=== PATIENT | female | born 1980 | race Caucasian/White ===

== ENCOUNTER → 2017-01-02 | Outpatient (CLI) | payer OTHER ==
[~2017-01-02] MED LIST: PRENTAB26 PO
[2017-01-02 16:29] LABS: HEMATOCRIT 34.4 % (37-47); MEAN CORPUSCULAR HEMOGLOBIN 30.4 pg (25-34); MEAN CORPUSCULAR HGB CONC 33.4 g/dl (32-36); MEAN PLATELET VOLUME 9.7 fL (7.4-10.4); PLATELET COUNT 271 K/uL (130-400); RED BLOOD COUNT 3.78 M/uL (4.2-5.4); WHITE BLOOD COUNT 8.05 K/uL (4.8-10.8)
== END | disposition home or self-care (01) ==
LOC: C.LAB1850 15:44
PROVIDERS: ATTEND Obstetrics & Gynecology
DX: N93.9 Abnormal uterine and vaginal bleeding, unspecified (principal)

== ENCOUNTER → 2017-01-24 | Outpatient (CLI) | payer OTHER | END | disposition home or self-care (01) | LOC: C.PATHSPEC 17:48 | PROVIDERS: ATTEND Obstetrics & Gynecology | DX: N93.9 Abnormal uterine and vaginal bleeding, unspecified (principal) ==

== ENCOUNTER → 2017-04-03 | Outpatient (CLI) | payer OTHER ==
[~2017-04-03] MED LIST changes: +CALC500C3 PO; +OXYC-57 PO
[2017-04-03 11:10] LABS: URINE APPEARANCE CLEAR (CLEAR); URINE BILIRUBIN NEG (NEG); URINE COLOR YELLOW; URINE NITRITE NEG (NEG); URINE PH 7.5 (4.5-7.5); URINE SPECIFIC GRAVITY 1.008 (1.000-1.030); UROBILINOGEN NEG (NEG)
[2017-04-03 11:11] LABS: MANUAL MICROSCOPIC REQUIRED? NO; REVIEW REQ? NO
== END | disposition home or self-care (01) ==
LOC: C.LABSPEC 10:44
PROVIDERS: ATTEND Obstetrics & Gynecology
DX: O34.219 Maternal care for unspecified type scar from previous cesarean delivery (principal); Z3A.00 Weeks of gestation of pregnancy not specified

== ENCOUNTER → 2017-04-10 | Outpatient (CLI) | payer OTHER ==
[2017-04-10 13:23] LABS: BASO % 0.1 %; BASO ABS # 0.01 K/uL (0-0.2); COMPLETE YES; HEMATOCRIT 35.7 % (37-47); IG% 0.2 %; LYMPH % 15.1 %; LYMPH ABS # 1.51 K/uL (1.2-3.4); MEAN CELL VOLUME 89.9 fL (80-100); MEAN CORPUSCULAR HGB CONC 34.5 g/dl (32-36); MEAN PLATELET VOLUME 9.2 fL (7.4-10.4); MONO % 5.3 %; NEUT % 77.3 %; PLATELET COUNT 210 K/uL (130-400); RED BLOOD COUNT 3.97 M/uL (4.2-5.4); WHITE BLOOD COUNT 9.98 K/uL (4.8-10.8)
== END | disposition home or self-care (01) ==
LOC: C.LAB1850 12:14
PROVIDERS: ATTEND Obstetrics & Gynecology
DX: Z33.1 Pregnant state, incidental (principal)

== ENCOUNTER → 2017-04-10 | Outpatient (CLI) | payer OTHER ==
[2017-04-13 00:54] LABS: CHLAMYDIA TRACH RNA*** NOT DETECTED (NOT DETECTED); GC (NEIS GONORRHOEAE)RNA** NOT DETECTED (NOT DETECTED)
== END | disposition home or self-care (01) ==
LOC: C.LABSPEC 14:30
PROVIDERS: ATTEND Obstetrics & Gynecology
DX: Z33.1 Pregnant state, incidental (principal)

== ENCOUNTER → 2017-06-12 | Outpatient (CLI) | payer OTHER ==
[~2017-06-12] MED LIST changes: -CALC500C3 PO; -OXYC-57 PO
[2017-06-12 14:39] LABS: GTGD 50 Grams
== END | disposition home or self-care (01) ==
LOC: C.LAB1850 12:02
PROVIDERS: ATTEND Obstetrics & Gynecology
DX: O09.522 Supervision of elderly multigravida, second trimester (principal); Z3A.00 Weeks of gestation of pregnancy not specified

== ENCOUNTER → 2017-08-08 | Outpatient (CLI) | payer OTHER ==
[2017-08-08 10:14] LABS: HEMATOCRIT 34.8 % (37-47)
[2017-08-08 10:35] LABS: GTGD 50 Grams
[2017-08-08 12:48] LABS: URINE APPEARANCE CLEAR (CLEAR); URINE BILIRUBIN NEG (NEG); URINE COLOR YELLOW; URINE NITRITE NEG (NEG); URINE PH 7.5 (4.5-7.5); URINE SPECIFIC GRAVITY 1.006 (1.000-1.030); UROBILINOGEN NEG (NEG)
[2017-08-08 12:54] LABS: MANUAL MICROSCOPIC REQUIRED? YES; REVIEW REQ? NO
[2017-08-08 14:09] LABS: URINE BACTERIA NEG (NEG); URINE RBC 0-4 /hpf (0-4)
== END | disposition home or self-care (01) ==
LOC: C.LAB1850 09:21
PROVIDERS: ATTEND Obstetrics & Gynecology
DX: O09.522 Supervision of elderly multigravida, second trimester (principal)

== ENCOUNTER → 2017-08-22 | Outpatient (CLI) | payer OTHER | END | disposition home or self-care (01) | LOC: C.LAB1850 08:42 | PROVIDERS: ATTEND Obstetrics & Gynecology | DX: O28.1 Abnormal biochemical finding on antenatal screening of mother (principal) ==

== ENCOUNTER → 2017-10-26 | Outpatient (CLI) | payer OTHER ==
[~2017-10-26] MED LIST changes: +CALC500C3 PO; +OXYC-57 PO
--- NOTE | 2017-10-26 12:44 | HISTORY & PHYSICAL EXAMINATION ---
DATE OF ADMISSION: 10/26/2017 HISTORY OF PRESENT ILLNESS: This is a 37-year-old 4, para 2-0-1-2 at 39 weeks estimated gestational age with an EDC of 10/29/2017, who presented to the office today for planned repeat section tomorrow morning. The patient is doing well. She denies any vaginal bleeding, leaking or pain. She was seen earlier this week and did have for planned nonstress tests for advanced maternal age and it was normal. She denies any concerns regarding movement. Her course has been complicated by prior section x2, advanced maternal age, and group beta strep positivity. The patient also desires sterilization at the time of tomorrow. PAST OBSTETRIC AND GYNECOLOGIC HISTORY: x2 and TAB x1. Normal Pap smears. No STDs. PAST MEDICAL HISTORY: Negative. PAST SURGICAL HISTORY: x2 and wisdom teeth extraction. ALLERGIES: No known drug allergies. MEDICATIONS: vitamins. SOCIAL HISTORY: No tobacco, alcohol or street drug use. FAMILY HISTORY: No congenital anomalies or mental retardation. REVIEW OF SYSTEMS: Per HPI. Otherwise, negative. PHYSICAL EXAMINATION: VITAL SIGNS: Height 5 feet 0 inch, weight 201 pounds, and blood pressure 116/70. Urine dip negative for protein. GENERAL: She is a pleasant female, well developed and well nourished in no acute distress. HEART: Regular rate and rhythm. LUNGS: Clear to auscultation bilaterally. ABDOMEN: Soft, gravid, and nontender. Fetus is cephalic by Jaylon's maneuvers. Positive heart tones. EXTREMITIES: Nontender calves. No evidence of edema. ASSESSMENT: 1. 39 and 4/7 weeks' intrauterine . 2. Prior section x2, desires repeat section. 3. Desires sterilization. 4. Advanced maternal age. PLAN: The patient will be presenting to the hospital tomorrow morning for planned repeat section and tubal ligation. Risks, alternatives and complications of both procedures were reviewed with the patient and she desired to proceed. Specifically, risks include bleeding, infection, injury to maternal and structures, failure with resultant , ectopic , and regret. The patient desires to proceed and consent forms are signed. She will undergo laboratory testing today and preadmission testing. She will present in the morning for planned procedure. Her preop and postop instructions and course were reviewed.
[2017-10-26 13:25] LABS: BASO % 0.1 %; BASO ABS # 0.01 K/uL (0-0.2); EOS % 0.7 %; EOS ABS # 0.08 K/uL (0-0.5); HEMATOCRIT 34.7 % (37-47); HEMOGLOBIN 11.9 g/dL (12.0-16.0); LYMPH % 12.1 %; MEAN CELL VOLUME 96.9 fL (80-100); MEAN CORPUSCULAR HEMOGLOBIN 33.2 pg (25-34); MEAN CORPUSCULAR HGB CONC 34.3 g/dl (32-36); MEAN PLATELET VOLUME 9.8 fL (7.4-10.4); MONO % 7.1 %; MONO ABS # 0.77 K/uL (0.11-0.59); NEUT % 79.1 %; NEUT ABS # 8.52 K/uL (1.4-6.5); PLATELET COUNT 141 K/uL (130-400); RED CELL DISTRIBUTION WIDTH SD 46.4 fL (36.4-46.3); WHITE BLOOD COUNT 10.78 K/uL (4.8-10.8)
== END | disposition home or self-care (01) ==
LOC: C.LAB 04:00
PROVIDERS: ATTEND Obstetrics & Gynecology
DX: Z01.812 Encounter for preprocedural laboratory examination (principal)

== ENCOUNTER 2017-10-27 07:43 | Inpatient (IN) | payer OTHER ==
--- NOTE | 2017-10-26 12:31 | PAT Medication Instructions ---
Service Date Oct 26, 2017. Current Home Medication List Calcium Carbonate (Tums), 1-2 TAB PO prn Multivit/Min/Iron/Fol Ac/Pren ( Vitamin), 1 TAB PO HS Medication Instructions For Your Scheduled Surgery - Hold the following medications the morning of surgery: Calcium Carbonate (Tums), 1-2 TAB PO prn - Take the following medications as scheduled the night before surgery: Multivit/Min/Iron/Fol Ac/Pren ( Vitamin), 1 TAB PO HS *nothing to eat or drink after midnight* If you have any questions please call us at [phone] or [phone] or [phone]
[2017-10-27] VITALS (11 sets, daily range): BP systolic 106–111; BP diastolic 67–73; PULSE 75–83; TEMP 36.5–36.8; O2SAT 96–98; Ht 152.4 cm; Wt 91.4 kg
[~2017-10-27] VITALS: Ht 152.4 cm; Wt 91.4 kg
[~2017-10-27 07:43] MED LIST changes: +CEFAZOLIN IV 2,000 MG in SYRINGE 0 ML IV SCH; +CITRIC ACID/SODIUM CITRATE 15 ML UDC PO SCH; +LACTATED RINGER'S 1000ML 1,000 ML IV SCH; -OXYC-57 PO
[2017-10-27] MEDS ORDERED: MoRPHine SULFATE PF 1 MG/ML 10 ML AMP/VIAL ONE (09:11)
[2017-10-27] MEDS ORDERED: SODIUM CHLORIDE 0.9% 1000ML 1,000 ML IV PRN (09:23)
[2017-10-27] MEDS ORDERED: LACTATED RINGER'S 1000ML 500 ML IV PRN (09:23)
[2017-10-27] MEDS ORDERED: NALOXONE HCL INJ 0.08 MG in SYRINGE 1.8 ML IV PRN (09:23)
[2017-10-27] MEDS ORDERED: NALOXONE HCL INJ 1 MG in SODIUM CHLORIDE 0.9% 1000ML 1,000 ML IV PRN ×4 (09:23)
[2017-10-27] MEDS ORDERED: EpHEDrine SULFATE INJ 50 MG/ML AMP IV PRN ×2 (09:30)
[2017-10-27] MEDS ORDERED: ONDANSETRON INJ 2 MG/ML 2 ML VIAL IV PRN ×2 (09:30)
[2017-10-27] MEDS ORDERED: ATROPINE SULFATE 0.1 MG/ML 5ML SYR IV PRN (09:30)
[2017-10-27] MEDS ORDERED: MEPERIDINE HCL 25 MG/ML CARP IV PRN ×2 (09:30)
[2017-10-27] MEDS ORDERED: PHENYLEPHRINE 100MCG/ML 5ML SYR IV PRN (09:30)
[2017-10-27] MEDS ORDERED: MoRPHine SULFATE PF 1 MG/ML 10 ML AMP/VIAL EPI PRN (09:30)
[2017-10-27] MEDS ORDERED: KETOROLAC TROMETHAMINE 30 MG/ML VIAL IV. PRN (09:30)
[2017-10-27] MEDS ORDERED: PROMETHAZINE HCL INJ 12.5 MG in SODIUM CHLORIDE 0.9% 50ML 50 ML IV PRN ×4 (09:30)
[2017-10-27] MEDS ORDERED: NALOXONE HCL 0.4 MG/1 ML VIAL/CARP IV PRN (09:30)
[2017-10-27] MEDS ORDERED: DiphenhydrAMINE HCL 50 MG/ML VIAL IV PRN (09:30)
[2017-10-27] MEDS ORDERED: NO NARCOTICS OR SEDATIVES SCH (09:30)
[2017-10-27] MEDS ORDERED: NALBUPHINE HCL INJ 10 MG/ML AMP IV PRN (09:30)
--- NOTE | 2017-10-27 10:16 | History & Physical Bridge Note ---
H&P Re-Evaluation Bridge Note: I have examined the patient, reviewed the History & Physical and in the interval since the performance of the History & Physical I have noted the following changes of clinical significance: No changes noted
[2017-10-27] MEDS ORDERED: OXYTOCIN INJ 10 UNITS/ML VIAL ONE (10:50)
[2017-10-27] MEDS ORDERED: METOCLOPRAMIDE HCL INJ 5 MG/ML 2 ML VIAL ONE (10:50)
[2017-10-27] MEDS ORDERED: EpHEDrine SULFATE 50MG/5ML SYR ONE (10:50)
[2017-10-27] MEDS ORDERED: ONDANSETRON INJ 2 MG/ML 2 ML VIAL ONE (10:50)
[2017-10-27] MEDS ORDERED: PHENYLEPHRINE 100MCG/ML 5ML SYR ONE (10:50)
[2017-10-27] MEDS ORDERED: OXYTOCIN INJ 20 UNITS in LACTATED RINGER'S 1000ML 1,000 ML IV SCH (11:15)
[2017-10-27] MEDS ORDERED: HYDROCORTISONE ACETATE 25 MG SUPP PR PRN (11:15)
[2017-10-27] MEDS ORDERED: BENZOCAINE 20% AER SPR 82.5 GM CAN EXT PRN (11:15)
[2017-10-27] MEDS ORDERED: SUPERCREAM 0.870 % 15GM JAR EXT PRN (11:15)
[2017-10-27] MEDS ORDERED: LANOLIN OINT EXT PRN ×2 (11:15)
--- NOTE | 2017-10-27 11:39 | [facility] Operative Report ---
Operative Report Operative Date Oct 27, 2017. Pre-Operative Diagnosis 39 week Intrauterine , previous Section x 2-desires repeat section, desires sterilization, advanced maternal age Post-Operative Diagnosis same with delivery of living male child at 1045 Procedure(s) Performed Repeat Low Transverse Caesarean Section with modified ana rosa bilateral tubal ligation Surgeon Dr. Lorin Ayers Billet Checker Surgeon(s) Dr. Saucedo Estimated Blood Loss 600 Findings Viable male infant Apgars 9 and 10 and weight 8 lbs. 2 oz. normal uterus tubes and ovaries bilaterally Fluids 3000 Specimens a. placenta- hold b. cord blood specimen c. portion right fallopian tube d. portion left fallopian tube Drains Smith Anesthesia spinal with Duramorph Complication(s) None Disposition Recovery Room / PACU Indications 37-year-old 3 para 2001 at 39+ weeks estimated gestational age for planned repeat section with history of prior section 2. The patient also desired bilateral tubal ligation and was aware of all of her control options. Description of Procedure The patient was taken to the operating room and identified. After adequate spinal anesthesia was obtained she was placed in the supine position with a leftward tilt and prepped and draped in usual sterile fashion. A Smith catheter had been placed under sterile conditions. Her anesthesia level was tested and was adequate. A knife was used to create a Pfannenstiel skin incision that was carried down to the underlying layer of fascia. The fascia was nicked in the midline and this opening was extended laterally using Fuentes scissors. Raymond clamps were placed on the superior and inferior aspects the fascial incision tenting upwards and the underlying rectus muscles were dissected off the overlying fascia both sharply and bluntly using Fuentes scissors. The peritoneal cavity had already been entered into. This opening was stretched. The bladder blade was placed. The vesicouterine peritoneum was elevated and entered into sharply using Metzenbaum scissors and extended laterally. The bladder flap was created digitally. The bladder blade was replaced. The knife was used to create a hysterotomy that was then stretched. Amniotic sac was ruptured with return of clear fluid. The operators hand was placed through the hysterotomy and the head was elevated. The bladder blade was removed. With fundal pressure the cephalic was delivered. The nose and mouth were bulb suctioned. With further fundal pressure the body was delivered. The cord was clamped and cut and the infant was handed off to the waiting pediatricians. Cord blood was obtained. The placenta was manually expressed. Uterus was exteriorized and cleared of all clots and debris. The hysterotomy was closed in a running interlocking fashion using 0 Vicryl. Interrupted imbricating sutures of 0 Vicryl were placed for excellent hemostasis. The right fallopian tube was identified to its fimbriated end. A knuckle of tube was elevated using a Gregory clamp. The tube was then doubly ligated using 2-0 plain suture material. The tube was then transected with Metzenbaum scissors and the stumps were cauterized. The left fallopian tube was identified elevated, doubly ligated , transected and cauterized in the similar fashion. The tubal specimens were sent separately. The hysterotomy was reinspected and noted to be hemostatic. The uterus was returned to the abdomen. The tubal ligation operative sites were inspected and noted to be intact and hemostatic and the hysterotomy was reinspected and noted to be hemostatic. The fascia was then closed in a running fashion using 0 Vicryl. The subcutaneous fat was copiously irrigated. The subcutaneous tissue was then reapproximated using 2-0 chromic. The skin was then reapproximated in a subcuticular fashion using 4-0 Vicryl. All sponge lap needle counts were correct 2. The patient was returned to the recovery room in stable condition. I attest to the content of the Intraoperative Record and any orders documented therein. Any exceptions are noted below.
--- NOTE | 2017-10-27 11:46 | Medical Student: [facility] ---
Operative Report Operative Date Oct 27, 2017. Pre-Operative Diagnosis IUP @39-5wks; AMA; repeat section with b/l tubal ligation Post-Operative Diagnosis same as preop Procedure(s) Performed repeat low transverse section; b/l [place] tubal ligation Surgeon Dr. Ayers Food Service Specialist Surgeon(s) Dr. Saucedo Estimated Blood Loss 600cc Findings Scar tissue from previous sections. Normal appearing uterus with thinning of the lower uterine segment. Normal appearing b/l fallopian tubes and b/l ovaries. Delivered viable male infant born from vertex presentation with 9 and 10 Apgars and weight of 4eg4gls. Fluids (cc crystalloids) 3000cc Specimens placenta (hold), cord blood specimen, segment of right fallopian tube, segment of left fallopian tube Drains peña to straight drainage; clear urine at end of case Anesthesia spinal Complication(s) None Disposition Recovery Room / PACU Indications 37yo [id number] (now 3) @ 39-5wks with hx of 2 previous sections who presents for repeat section and b/l tubal ligation.
--- NOTE | 2017-10-27 15:17 | Anesthesiology Progress Note ---
Anesthesia Post Op Note Date & Time Oct 27, 2017 at 15:16 Vital Signs Vital Signs Past 12 Hours Date Time Temp Pulse Resp B/P (MAP) Pulse Ox O2 Delivery O2 Flow Rate FiO2 10/27/17 14:00 18 97 Notes Mental Status: alert / awake / arousable, participated in evaluation Pt Amnestic to Procedure: Yes Nausea / Vomiting: adequately controlled Pain: adequately controlled Airway Patency, RR, SpO2: stable & adequate BP & HR: stable & adequate Hydration State: stable & adequate Anesthetic Complications: no major complications apparent
[2017-10-27] MEDS: SIMETHICONE 80 MG CHEW PO SCH ×2 (17:00→20:11)
[2017-10-27] MEDS: KETOROLAC TROMETHAMINE 30 MG/ML VIAL IV. PRN (18:32)
[2017-10-27] MEDS: DOCUSATE SODIUM 100 MG CAP PO SCH (20:11)
[2017-10-28] VITALS (8 sets, daily range): BP systolic 98–130; BP diastolic 65–75; PULSE 75–80; TEMP 36.3–36.8; O2SAT 94–97
[2017-10-28] MEDS: KETOROLAC TROMETHAMINE 30 MG/ML VIAL IV. PRN (00:32)
[2017-10-28] MEDS ORDERED: OXYCODONE/ACETAMINOPHEN 5-325 TAB PO PRN (03:00)
[2017-10-28] MEDS ORDERED: ONDANSETRON INJ 2 MG/ML 2 ML VIAL IV PRN (03:00)
[2017-10-28] MEDS ORDERED: KETOROLAC TROMETHAMINE 30 MG/ML VIAL IV. PRN (03:00)
[2017-10-28] MEDS ORDERED: PROMETHAZINE HCL INJ 25 MG in SODIUM CHLORIDE 0.9% 50ML 50 ML IV PRN (03:00)
[2017-10-28] MEDS ORDERED: DC INTRASPINAL MORPHINE ONE (03:00)
[2017-10-28] MEDS: IBUPROFEN 600 MG TAB PO PRN ×5 (06:00→22:47)
[2017-10-28] MEDS: OXYCODONE/ACETAMINOPHEN 5-325 TAB PO PRN ×5 (06:01→22:47)
--- NOTE | 2017-10-28 07:05 | Progress Note ---
Subjective Oct 28, 2017. Subjective conversation w/ patient, physical exam, chart review, lab review Ambulation: ambulating normally Voiding: no voiding problems Passing Gas: Yes Diet Tolerance: Regular Diet Lochia: Moderate Feeding Type: Bottle Feeding Pain: controlled Review of Systems Respiratory: No shortness of breath Cardiac: No chest pain Abdomen: No nausea, No vomiting Female : No dysuria Objective Vital Signs Date Time Temp Pulse Resp B/P (MAP) Pulse Ox O2 Delivery O2 Flow Rate FiO2 10/28/17 03:40 36.7 79 16 108/70 (83) 96 Room Air 10/28/17 02:40 16 96 10/28/17 01:30 16 96 10/28/17 00:30 20 97 10/27/17 23:30 36.5 83 20 106/67 (80) 96 Room Air 10/27/17 23:30 20 96 10/27/17 23:30 96 Room Air 10/27/17 22:35 16 96 10/27/17 21:30 16 97 10/27/17 20:25 16 97 10/27/17 20:25 36.8 75 16 111/73 (86) 97 Room Air 10/27/17 19:20 20 98 10/27/17 19:00 18 97 10/27/17 18:00 18 98 10/27/17 17:00 20 98 10/27/17 15:30 18 98 10/27/17 15:30 97 Room Air 10/27/17 15:00 18 97 10/27/17 14:00 18 97 Physical Exam General Appearance: WELL-APPEARING, WD/WN, NO APPARENT DISTRESS Respiratory/Chest: lungs clear, normal breath sounds, no respiratory distress Cardiovascular: regular rate, rhythm, no gallop Abdomen: normal bowel sounds, soft Fundus: Firm, Tender (appropriately tender), Relation to Umbilicus (1 below U) Incision Description: Clean, Dry & Intact Extremities: non-tender, normal inspection Laboratory Results Last 24 Hours Test 10/28/17 06:00 Assessment and Plan Post-Op Day#: 1 Continue Routine Care: 37 yof (now3) C/S 10/27 at 1045 A+/GBS+/RI Hgb pending. Pt doing well clinically. Encourage ambulation, control pain with motrin/tylenol. Monitor lochia. Continue routine post care. WILL MARGARITO FMR PGY 1. Resident Physician Supervision Note: I was present with Dr. Saucedo during the history and exam. I discussed the case with the resident and agree with the findings and plan as documented in the note. Any exceptions or clarifications are listed here: doing well, hgb pending. ff about 2 down and incision c/d/i. routine care. Documented By: Lorin Ayers Resident Tracking Resident Involvement: Resident Care Provided Care Provided: OB Delivery
--- NOTE | 2017-10-28 07:26 | Discharge Instructions ---
Discharge Instructions Date of Service Oct 28, 2017. Admission Reason for Admission: Previous Section Discharge Discharge Diagnosis / Problem: Section, need for sterilization Discharge Goals Goal(s): Routine recovery after Medications Continue Dispensed Medications: supercream, lansinoh Activity Recommendations Activity Limitations: per Instructions/Follow-up section . Instructions / Follow-Up Instructions / Follow-Up ACTIVITY RECOMMENDATIONS: * Gradual return to full activity over the next 2-3 weeks. * No lifting - nothing heavier than baby over the next 2-3 weeks. * Do not engage in vigorous exercise, sexual activity or sports until cleared by your physician. * Do not drive or operate any motorized equipment until cleared by your physician. * You may shower/bathe daily. MEDICATIONS: For discomfort or pain, you may use Acetaminophen (Tylenol), Ibuprofen (Advil), or Naproxen (Aleve) following the package directions. For constipation you may use Colace following the package directions. BREAST CARE: If you are not breast feeding: * Wear a supportive bra 24 hours a day for one to two weeks. * Avoid stimulating your breasts and nipples as much as possible during the first few weeks after delivery. * When taking a shower, have the warm water hit your back, not breasts. * When your breasts feel full, apply ice packs. Usually three to four times a day helps ease the discomfort. * Take a mild pain medication (Tylenol / Motrin) when you are uncomfortable. If breast feeding: * Use breast milk to lubricate nipples. Lansinoh cream may be used for sore nipples. You do not need to remove cream prior to breast feeding. If using a different brand of cream, check the label for directions regarding removal of cream prior to nursing. * Wear a supportive bra. * If having problems with breasts or breast feeding, call a internet marketing consultant or your health care provider. SPECIAL CARE INSTRUCTIONS: When you are discharged from the hospital, it is important for you to follow the instructions listed below: * During the first week at home, you should be able to care for yourself and your baby. In addition, the usual light household activities are encouraged. * Limit your activities to the way you feel. Do not try to clean the house or move furniture. Be sensible. * If you actively engage in sports and have done so up until the time of your delivery, you may resume these activities as soon as you feel able. This may take up to one month or even longer. Use good judgment. * Continue to take your vitamins for at least six weeks after the of your baby. * Your diet need not be limited unless you were on a special diet before your delivery. Breast-feeding mothers need around 2500 calories per day and at least 64-80 ounces of fluid per day (8 to 10 glasses). * You should eat foods from the four major food groups. Crash diets or fad diets are to be avoided. Eating lean meats, fresh fruits and vegetables, low-fat dairy products, high fiber foods and a regular exercise program, will help you get back to your pre- weight without putting your health at risk. * Constipation is sometimes a problem after delivery. Take a mild laxative as needed. If breast feeding, Milk of Magnesia is acceptable to use. You may use a suppository or Fleets enema. * A daily shower or tub bath is suggested. Wash incision daily with warm soapy water and pat dry. It doesn't need to be covered unless drainage is present. * A bloody vaginal discharge will usually continue until around four weeks . A small amount of bleeding may continue for as long as six weeks. Vaginal discharge changes from the bright red bleeding after delivery to pink then brownish and finally yellowish-pink before becoming white and disappearing. * Bleeding may increase with activity. Your first period may come in 4-8 weeks. If you are breast feeding, your period may be delayed even longer. * [place] (sex) can begin whenever both you and your partner feel comfortable and do not have any form of genital infection. It is recommended that you wait at least six weeks for internal and external healing to occur. If you have questions, please talk to your health care practitioner. A condom should be used to prevent infection and . * Foreplay, gentle intercourse and lubrication is very important the first several times to prevent pain. A water-based lubricant such as K-Y jelly or Astroglide may be used. * If you have RH negative blood and your baby is RH positive, you will receive RHOGAM by injection prior to discharge. The nurse will give you a card to keep with you that has the date and place that you received RHOGAM after delivery. * During your care, you had a Rubella screen done to check for the presence of rubella antibodies in your blood. If your test was negative, you will receive a Rubella vaccine prior to discharge. This vaccine may cause a fever, soreness at the injection site and flu-like symptoms. If these symptoms persist, notify your health care practitioner. is not advised for one month after a Rubella vaccine. * Verbalizes understanding of car seat law as reviewed with patient nursing. * Car Seat hand-out given and reviewed with patient by nursing. * Shaken baby information reviewed with patient by nursing. Call you doctor if: * Heavy bleeding (saturating several pads an hour) or passing clots the size of your fist. * A fever >101 degrees F (38.3 degrees C) on two occasions four hours apart and /or chills. * Unusual pain in the pelvic or vaginal areas. * Call the doctor for any increased redness, drainage or swelling around the incision and any pain unrelieved by prescribed pain medication. * "Baby Blues" lasting longer than two weeks. If you have any questions or concerns, call your health care practitioner at . FOLLOW UP VISIT: * Please call the office at to schedule a 6 week examination. It is important you keep this appointment. It is important for you to make arrangements for either yearly or twice yearly check-ups thereafter. Current Hospital Diet Patient's current hospital diet: Regular OB Diet Discharge Diet Recommended Diet: Regular OB Diet Procedures Procedures Performed: Repeat Low Transverse Caesarean Section with modified ana rosa bilateral tubal ligation Pending Studies Studies pending at discharge: no Medical Emergencies . Who to Call and When: Medical Emergencies: If at any time you feel your situation is an emergency, please call [phone] immediately. . Non-Emergent Contact Non-Emergency issues call your: Primary Care Provider . . "Provider Documentation" section prepared by Jenelle Saucedo. . VTE Core Measure Inpt VTE Proph given/why not?: SCD's
[2017-10-28] MEDS: PRENATAL VITAMIN TAB PO SCH (07:57)
[2017-10-28] MEDS: SIMETHICONE 80 MG CHEW PO SCH ×4 (07:57→19:17)
[2017-10-28] MEDS: DOCUSATE SODIUM 100 MG CAP PO SCH ×2 (07:57→19:17)
[2017-10-28] MEDS: FERROUS SULFATE 325 MG TAB PO SCH (07:57)
[2017-10-28 08:31] LABS: BASO % 0.1 %; BASO ABS # 0.01 K/uL (0-0.2); COMPLETE YES; HEMATOCRIT 30.4 % (37-47); IG% 0.8 %; LYMPH % 8.9 %; LYMPH ABS # 0.93 K/uL (1.2-3.4); MEAN CELL VOLUME 96.8 fL (80-100); MEAN CORPUSCULAR HEMOGLOBIN 33.1 pg (25-34); MEAN CORPUSCULAR HGB CONC 34.2 g/dl (32-36); MEAN PLATELET VOLUME 9.4 fL (7.4-10.4); MONO % 6.2 %; PLATELET COUNT 125 K/uL (130-400); RED BLOOD COUNT 3.14 M/uL (4.2-5.4)
[2017-10-29] MEDS ORDERED: DC INTRASPINAL MORPHINE ONE (03:00)
[2017-10-29] MEDS: IBUPROFEN 600 MG TAB PO PRN ×2 (03:06→07:11)
[2017-10-29] MEDS: OXYCODONE/ACETAMINOPHEN 5-325 TAB PO PRN ×2 (03:07→07:12)
[2017-10-29 07:20] LABS: HEMATOCRIT 30.8 % (37-47)
[2017-10-29 08:10] VITALS: BP 122/86; PULSE 60; TEMP 37; O2SAT 99
[2017-10-29] MEDS: PRENATAL VITAMIN TAB PO SCH (08:26)
[2017-10-29] MEDS: SIMETHICONE 80 MG CHEW PO SCH (08:26)
[2017-10-29] MEDS: DOCUSATE SODIUM 100 MG CAP PO SCH (08:26)
[2017-10-29] MEDS: FERROUS SULFATE 325 MG TAB PO SCH (08:26)
--- NOTE | 2017-10-29 08:37 | Progress Note ---
Subjective Oct 29, 2017. Subjective conversation w/ patient, physical exam, lab review Ambulation: ambulating normally Voiding: no voiding problems Passing Gas: Yes Diet Tolerance: Regular Diet Lochia: Small Feeding Type: Bottle Feeding Pain: minimal, controlled Objective Vital Signs Date Time Temp Pulse Resp B/P (MAP) Pulse Ox O2 Delivery O2 Flow Rate FiO2 10/28/17 22:45 96 Room Air 10/28/17 22:45 36.3 75 18 112/72 (85) 96 Room Air 10/28/17 16:00 94 Room Air 10/28/17 16:00 36.5 77 20 98/75 (83) Physical Exam General Appearance: WELL-APPEARING, WD/WN, NO APPARENT DISTRESS Abdomen: non tender, soft Fundus: Firm, Non-Tender, Relation to Umbilicus (at u) Incision Description: Clean, Dry & Intact Extremities: non-tender, normal inspection, + pedal edema (trace) Laboratory Results Last 24 Hours Test 10/29/17 06:47 Hemoglobin 10.1 g/dL Hematocrit 30.8 % Assessment and Plan Post-Op Day#: 2 Continue Routine Care: Doing well. Ready for d/c. Instructions given.
[2017-10-29] MEDS ORDERED: OXYC-57 PO (08:38)
[2017-10-29 11:05] VITALS: BP_DIAS 86; PULSE 60; TEMP 37
--- NOTE | 2017-10-31 13:40 | DISCHARGE SUMMARY ---
ADMISSION DIAGNOSES: 1. A 39+ week intrauterine . 2. Prior section x2, desires repeat section. 3. Desires sterilization. 4. Advanced maternal age. DISCHARGE DIAGNOSES: Same. PROCEDURE: 1. Repeat low transverse section. 2. Modified [place] bilateral tubal ligation. BRIEF HISTORY AND HOSPITAL COURSE: A 37-year-old 3, para 2-0-0-2, at 39+ weeks estimated gestational age who presents to labor and delivery for planned repeat section with a history of prior section x2 and also desired permanent sterilization via tubal ligation. She is aware of all of her control options. She underwent the above-stated procedures without incident. Her estimated blood loss was 600 mL. On her postop day #2, she was tolerating a regular diet, voiding spontaneously without difficulty, ambulating without difficulty and had her pain well controlled with oral medications. She was discharged to home with instructions as well as prescriptions for pain medications and told to follow up in the office in 6 weeks' time.
== END 2017-10-29 11:05 | disposition home or self-care (01) | DRG 766 ==
LOC: C.LD 07:43 → EDSTATUS 09:00 → C.OBG 14:23
PROVIDERS: ADMIT Obstetrics & Gynecology; ATTEND Obstetrics & Gynecology
PROC: 10D00Z1 Extraction of Products of Conception, Low, Open Approach (ICD-10-PCS; principal; 2017-10-27 09:30)
PROC: 0UL70ZZ Occlusion of Bilateral Fallopian Tubes, Open Approach (ICD-10-PCS; principal; 2017-10-27 09:30)
DX: O99.824 Streptococcus B carrier state complicating childbirth (principal); O09.523 Supervision of elderly multigravida, third trimester; Z30.2 Encounter for sterilization; Z3A.39 39 weeks gestation of pregnancy; Z37.0 Single live birth

== ENCOUNTER → 2017-12-04 | Outpatient (CLI) | payer OTHER ==
[~2017-12-04] MED LIST changes: -CEFAZOLIN IV 2,000 MG in SYRINGE 0 ML IV SCH; -CITRIC ACID/SODIUM CITRATE 15 ML UDC PO SCH; -LACTATED RINGER'S 1000ML 1,000 ML IV SCH; +OXYC-57 PO
== END | disposition home or self-care (01) ==
LOC: C.PAPS 13:27
PROVIDERS: ATTEND Obstetrics & Gynecology
DX: Z12.4 Encounter for screening for malignant neoplasm of cervix (principal)

== ENCOUNTER → 2018-03-12 | Outpatient (CLI) | payer OTHER | END | disposition home or self-care (01) | LOC: C.PATHSPEC 17:29 | PROVIDERS: ATTEND Obstetrics & Gynecology | DX: N93.9 Abnormal uterine and vaginal bleeding, unspecified (principal) ==